=== PATIENT | male | born 1995 | race American Indian/Alaskan Native ===

== ENCOUNTER 2019-02-23 22:52 | Emergency (ER) | payer SELFPAY ==
[2019-02-23] MEDS ORDERED: IBUPROFEN PO ONE (23:57)
== END 2019-02-24 00:50 | disposition left against medical advice (07) ==
LOC: ED 22:52
DX: M54.5 Low back pain (principal); Z53.21 Procedure and treatment not carried out due to patient leaving prior to being seen by health care provider

== ENCOUNTER 2019-06-02 18:18 | Emergency (ER) | payer OTHER ==
[2019-06-02] MEDS ORDERED: SODIUM CHLORIDE 0.9% 1000 ML 1,000 ML IV ONE (21:06)
[2019-06-02] MEDS ORDERED: KETOROLAC 30 MG/1 ML INJ IV ONE (21:06)
[2019-06-02] MEDS ORDERED: diazePAM 5 MG TAB PO ONE (21:07)
[2019-06-02] MEDS ORDERED: dexAMETHasone 20 MG/5 ML VIAL IV ONE (21:07)
[2019-06-02 21:14] VITALS: BP 122/81
--- NOTE | 2019-06-02 21:35 | Emergency Department Report ---
ED Neck Pain/Injury HPI - General Chief Complaint: Neck Pain/Injury Stated Complaint: NECK STIFF 2WKS/PAIN Time Seen by Provider: 06/02/19 20:56 Mode of arrival: Ambulatory Limitations: No Limitations - History of Present Illness Initial Comments: 24-year-old male presents to ED with headache and neck pain 2 weeks. Patient states he initially awoke with a knot on the right side of his neck. Patient states pain then progressed to both sides of the neck. Face pain radiated up into his head, causing a headache. Patient states pain is worse with right and left lateral rotation. Patient reports subjective fever. Denies any nausea or vomiting or URI symptoms. Patient denies any recent trauma to the head or neck. He reports a history of chronic lower back pain for which she used to get epidural steroid injections, however, has not had an injection in 7 years. MD Complaint: neck pain -: week(s) (2) Severity: moderate Quality: sharp Consistency: constant Improves With: immobilization Worsens With: movement of neck Context: unknown Associated Symptoms: headache, fever. denies: numbness, tingling, weakness, difficulty walking, difficulty swallowing, nausea, vomiting Treatments Prior to Arrival: Naproxen, cervical collar - Related Data Previous Rx's Medication Instructions Recorded Last Taken Type Naproxen [Naprosyn] 500 mg PO BID #20 tablet 06/02/19 Unknown Rx diazePAM TAB [Valium] 5 mg PO TID PRN #15 tablet 06/02/19 Unknown Rx predniSONE [Deltasone] 50 mg PO QDAY #5 tab 06/02/19 Unknown Rx Allergies Allergy/AdvReac Type Severity Reaction Status Date / Time Penicillins Allergy Hives Verified 02/23/19 22:57 ED Review of Systems ROS: Stated complaint: NECK STIFF 2WKS/PAIN Other details as noted in HPI Comment: All other systems reviewed and negative Constitutional: fever ENT: denies: throat pain, congestion Respiratory: denies: cough Gastrointestinal: denies: nausea, vomiting Musculoskeletal: as per HPI Neurological: headache. denies: weakness, numbness, paresthesias ED Past Medical Hx - Past Medical History Previous Medical History?: Yes Additional medical history: Chronic Back Pain - Surgical History Past Surgical History?: No - Social History Smoking Status: Current Every Day Smoker Substance Use Type: Marijuana - Medications Home Medications: Home Medications Medication Instructions Recorded Confirmed Last Taken Type Naproxen [Naprosyn] 500 mg PO BID #20 tablet 06/02/19 Unknown Rx diazePAM TAB [Valium] 5 mg PO TID PRN #15 tablet 06/02/19 Unknown Rx predniSONE [Deltasone] 50 mg PO QDAY #5 tab 06/02/19 Unknown Rx ED Physical Exam - General Limitations: No Limitations General appearance: alert, in no apparent distress - Head Head exam: Present: atraumatic, normocephalic - Eye Eye exam: Present: normal appearance, PERRL, EOMI - ENT ENT exam: Present: mucous membranes moist - Neck Neck exam: Present: normal inspection, tenderness (bilateral posterior cervical tenderness), other (limited right/ leftward rotation, limited flexion/ extension due to pain) - Respiratory Respiratory exam: Present: normal lung sounds bilaterally. Absent: respiratory distress - Cardiovascular Cardiovascular Exam: Present: regular rate, normal rhythm - GI/Abdominal GI/Abdominal exam: Present: soft. Absent: distended, tenderness - Extremities Exam Extremities exam: Present: normal inspection - Back Exam Back exam: Present: normal inspection - Neurological Exam Neurological exam: Present: alert, oriented X3, CN II-XII intact, normal gait. Absent: altered, motor sensory deficit - Psychiatric Psychiatric exam: Present: normal affect, normal mood - Skin Skin exam: Present: warm, dry, intact, normal color ED Course Vital Signs 06/02/19 06/02/19 21:13 23:22 Temperature 100.7 F H 99.5 F Pulse Rate 88 Respiratory 18 Rate Blood Pressure 122/81 [Left] O2 Sat by Pulse 98 Oximetry - Reevaluation(s) Reevaluation #1: 06/02/19 22:50 Pt given IV fluids, toradol, decadron, valium. Feeling much better at this time. ROM much imrpoved. Able to rotate right and left, flex and extend w/o difficulty. Spoke w/ pt regarding LP since he did have a low-grade fever with normal WBCs. Pt refused LP at this time. I explained that it would be to rule out meningitis. Pt understands the procedure because he has had epidural injections a few yrs ago. Pt still declines. Advised him to return if fever worsened or he developed any other neuro symptoms. Girlfriend at bedside during this conversation. ED Medical Decision Making - Lab Data Result diagrams: 06/02/19 21:51 06/02/19 21:51 - Radiology Data Radiology results: report reviewed, image reviewed - Medical Decision Making 24-year-old male with neck pain. Patient reports pain started as right-sided neck pain, felt like he slept the wrong way. She now states pain has progressed to both sides of his neck, with painful right and left rotation. Patient denies any URI symptoms, nausea or vomiting. CT head and C-spine were both normal. Has a normal neuro exam. Patient initially had low-grade temp of 100.7 here in ED, with normal heart rate and blood pressure. However, WBCs are normal. Spoke with patient regarding need for LP due to the fever. Patient refused LP. I have a low suspicion for meningitis, given his symptoms been ongoing for 2 weeks. Patient currently has normal range of motion following medications given here in the ED. Return precautions given to patient. Outpatient follow-up advised. Will discharge at this time. - Differential Diagnosis torticollis, meningitis, SAH Critical care attestation.: If time is entered above; I have spent that time in minutes in the direct care of this critically ill patient, excluding procedure time. ED Disposition Clinical Impression: Torticollis, acute Disposition: DC-01 TO HOME OR SELFCARE Is pt being admited?: No Condition: Stable Instructions: Spasmodic Torticollis (ED) Prescriptions: predniSONE [Deltasone] 50 mg PO QDAY #5 tab Naproxen [Naprosyn] 500 mg PO BID #20 tablet diazePAM TAB [Valium] 5 mg PO TID PRN #15 tablet PRN Reason: Anxiety Referrals: STEPHANIE DENNIS MD [Primary Care Provider] - 3-[address] [facility] [Provider Group] - 3-5 Days AIDAN HUFF MD [Staff Physician] - 3-5 Days Time of Disposition: 22:55
--- NOTE | 2019-06-02 22:02 | Cat Scan Report ---
CT BRAIN: 06/02/2019 INDICATION / CLINICAL INFORMATION: pain. COMPARISON: None available. FINDINGS: BRAIN/INTRACRANIAL STRUCTURES: Unenhanced CT images of the brain demonstrate no evidence of acute int racranial abnormality. Ventricles and sulci are normal in size and shape for a patient of this age. There is no evidence of hemorrhage or mass. There are no abnormal extra-axial fluid collections. EXTRACRANIAL STRUCTURES: Unremarkable. IMPRESSION: No acute abnormality. All CT scans at this location are performed using dose reduction to ALARA by means of automated expos ure control. Signer Name: Raj Escalera MD Signed: 06/02/2019 9:58 PM Workstation Name: [id number]
--- NOTE | 2019-06-02 22:04 | Cat Scan Report ---
CT CERVICAL SPINE: 06/02/2019 INDICATION / CLINICAL INFORMATION: Neck pain. Stiffness.. COMPARISON: None available. FINDINGS: CT images of the cervical spine were obtained. Images are evaluated in the axial, coronal, and sagit karlene planes. There is no evidence of acute abnormality. Reversal of cervical lordosis is centered at the C5-6 level with the patient positioned for this exam . Vertebral body alignment is otherwise unremarkable. There is no evidence of foraminal or osseous canal narrowing. There is no CT evidence of epidural mas s or hemorrhage. LEVEL BY LEVEL ANALYSIS: . CRANIOCERVICAL JUNCTION: Unremarkable. PARASPINAL STRUCTURES: Unremarkable. IMPRESSION: No acute abnormality. All CT scans at this location are performed using dose reduction to ALARA by means of automated expos ure control. Signer Name: Raj Escalera MD Signed: 06/02/2019 10:00 PM Workstation Name: [id number]
[2019-06-02 22:14] LABS: Basophils # (Auto) 0.1 K/mm3 (0.0-0.1); Basophils % (Auto) 1.1 % (0.0-1.8); Eosinophils # (Auto) 0.2 K/mm3 (0.0-0.4); Eosinophils % (Auto) 4.5 % (0.0-4.3); Hematocrit 45.8 % (35.5-45.6); Hemoglobin 15.6 gm/dl (11.8-15.2); Lymphocytes # (Auto) 1.5 K/mm3 (1.2-5.4); Lymphocytes % (Auto) 32.6 % (13.4-35.0); Mean Corpuscular HGB Conc 34 % (32-34); Mean Corpuscular Volume 96 fl (84-94); Monocytes # (Auto) 0.7 K/mm3 (0.0-0.8); Monocytes % (Auto) 15.6 % (0.0-7.3); Platelet Count 282 K/mm3 (140-440); Red Blood Count 4.76 M/mm3 (3.65-5.03); Red Cell Distribution Width 13.7 % (13.2-15.2)
[2019-06-02 22:30] LABS: BUN/Creatinine Ratio 6; Blood Urea Nitrogen 7 mg/dL (9-20); Calcium 8.7 mg/dL (8.4-10.2); Hemolysis Index 8
== END 2019-06-02 23:45 | disposition home or self-care (01) ==
LOC: ED 18:18
DX: M43.6 Torticollis (principal); M54.9 Dorsalgia, unspecified; G89.29 Other chronic pain; F17.200 Nicotine dependence, unspecified, uncomplicated; F12.10 Cannabis abuse, uncomplicated; Z79.899 Other long term (current) drug therapy; Z88.0 Allergy status to penicillin
CPT/HCPCS: 36415; 70450; 72125; 80048; 85025; 96374; 96375; 99284; J1100; J1885; J7030

== ENCOUNTER 2022-04-05 14:09 | Emergency (ER) | payer OTHER ==
[2022-04-05 14:32] VITALS: BP 143/94
--- NOTE | 2022-04-05 14:59 | XRay Report ---
LEFT WRIST 3 VIEWS INDICATION / CLINICAL INFORMATION: pain COMPARISON: None available. FINDINGS: BONES / JOINT(S): No acute fracture or subluxation. No significant arthritis. SOFT TISSUES: No significant abnormality. ADDITIONAL FINDINGS: None. IMPRESSION: No acute findings. Signer Name: John Julian MD Signed: 04/05/2022 2:55 PM Workstation Name: [email or web address]
== END 2022-04-05 22:00 | disposition left against medical advice (07) ==
LOC: ED 14:09
DX: Z04.1 Encounter for examination and observation following transport accident (principal); Z53.21 Procedure and treatment not carried out due to patient leaving prior to being seen by health care provider; V89.2XXA Person injured in unspecified motor-vehicle accident, traffic, initial encounter; Y93.89 Activity, other specified; Y92.89 Other specified places as the place of occurrence of the external cause; Y99.8 Other external cause status